=== PATIENT | male | born 2000 | race Caucasian/White ===

== ENCOUNTER 2018-10-11 04:26 | Emergency (ER) | payer OTHER ==
[~2018-10-11] VITALS: Ht 180.3 cm; Wt 158.8 kg
[2018-10-11 04:31] VITALS: BP_SYST 140
--- NOTE | 2018-10-11 04:31 | NUR ---
Patient to ER bed 3 to gown for evaluation. Side rails up.
--- NOTE | 2018-10-11 04:40 | NUR ---
Pt C/O Lt testical pain and nausea x 1 hour. Pt states he was driving and started to experience sudden onset testicular pain. Denies any deformities to the area, recent trauma, or any STD. Vital signs are stable will continue to monitor.
--- NOTE | 2018-10-11 04:41 | NUR ---
ER Dr. Shirley at bedside examining patient.
[2018-10-11] MEDS ORDERED: IBUPROFEN 800 MG TABLET PO ONE (04:45)
--- NOTE | 2018-10-11 05:00 | NUR ---
Dr. Shirley and Juan C RN at bedside for testicular exam. Pt tolerated examination well. Will continue to monitor.
--- NOTE | 2018-10-11 06:11 | NUR ---
Pt returned from ultrasound in stable condition. States pain has improved with medication. Mother is at bedside, will continue to monitor
--- NOTE | 2018-10-11 06:27 | NUR ---
Dr. Shirley at bedside discussing results and discharge instructions with pt
[2018-10-11 06:45] VITALS: BP_SYST 140
--- NOTE | 2018-10-11 06:45 | NUR ---
Patient given written and verbal discharge instructions and verbalizes understanding. ER MD discussed with patient the results and treatment provided. Patient in stable condition. ID arm band removed. Patient educated on pain management and to follow up with PMD. Pain Scale 0. Opportunity for questions provided and answered. Medication side effect fact sheet provided.
== END 2018-10-11 06:45 | disposition home or self-care (01) ==
LOC: SED 04:26
DX: N50.3 Cyst of epididymis (principal); N50.89 Other specified disorders of the male genital organs
CPT/HCPCS: 76870-TC; 99284

== ENCOUNTER 2018-10-27 01:14 | Emergency (ER) | payer OTHER ==
[~2018-10-27] VITALS: Ht 180.3 cm; Wt 142.9 kg
[2018-10-27 01:20] VITALS: BP_SYST 134
--- NOTE | 2018-10-27 01:35 | NUR ---
Patient to ER bed GORMAN to gown for evaluation. Side rails up. Report given to GISSEL REEDER.
--- NOTE | 2018-10-27 01:40 | NUR ---
Pt C/O testicular pain since April. Has been seen at [facility] and other local ED's for the same complaint. US was done on last visit and was discharged with Motrin. Pt has seen a specialists and per pt MD says "it is no cause for concern". Pain is intermittent and is relieved with Motrin and position of comfort. Pt states he did not take Motrin prior to arrival. Denies any other symptoms at this time.
--- NOTE | 2018-10-27 01:45 | NUR ---
ER Dr. Montelongo at bedside examining patient.
--- NOTE | 2018-10-27 02:15 | NUR ---
Patient given written and verbal discharge instructions and verbalizes understanding. ER MD discussed with patient the results and treatment provided. Patient in stable condition. ID arm band removed. Rx of Ciprofloxacin and Naprosyn given. Patient educated on pain management and to follow up with PMD. Pain Scale 0/10. Opportunity for questions provided and answered. Medication side effect fact sheet provided. Addendum: 10/27/18 at [email or web address] Montelongo gave discharge orders to patient
[2018-10-27 02:25] VITALS: BP_SYST 134
== END 2018-10-27 02:25 | disposition home or self-care (01) ==
LOC: SED 01:14
DX: N45.1 Epididymitis (principal)
CPT/HCPCS: 99283

== ENCOUNTER 2019-02-20 10:34 | Emergency (ER) | payer OTHER ==
[~2019-02-20] VITALS: Ht 180.3 cm; Wt 154.2 kg
[2019-02-20 10:34] VITALS: BP_SYST 129
[2019-02-20 14:25] LABS: BILIRUBIN,URINE NEGATIVE (NEGATIVE); BLOOD, URINE NEGATIVE (NEGATIVE); CLARITY/URINE CLEAR (CLEAR); COLOR,URINE YELLOW (YELLOW); GLUCOSE,URINE NEGATIVE (NEGATIVE); KETONES,URINE NEGATIVE (NEGATIVE); LEUKOCYTE ESTERASE ,URINE NEGATIVE (NEGATIVE); NITRITE, URINE NEGATIVE (NEGATIVE); PH,URINE 5.5 (5.0-8.0); PROTEIN URINE NEGATIVE (NEGATIVE); UROBILINOGEN,URINE 0.2 (0.2-1.0)
[2019-02-20 14:32] VITALS: BP_SYST 133
== END 2019-02-20 14:15 | disposition home or self-care (01) ==
LOC: SED 10:34
DX: L72.0 Epidermal cyst (principal)
CPT/HCPCS: 76870-TC; 81003; 99284

== ENCOUNTER 2019-03-10 11:31 | Emergency (ER) | payer OTHER ==
[~2019-03-10] VITALS: Ht 180.3 cm; Wt 158.8 kg
[2019-03-10 11:31] VITALS: BP_SYST 138
--- NOTE | 2019-03-10 11:31 | NUR ---
BROUGHT BACK TO BED #8 AND TRIAGED, REPORT GIVEN TO SHEREE
--- NOTE | 2019-03-10 11:40 | NUR ---
Patien is awake, alert, and oriented x4. Patient is complaining of left testicular pain x12 hours. Patient reports that he has a hitory of testicular torsion and that this feels like it.
[2019-03-10] MEDS ORDERED: KETOROLAC TROMETHAMINE 60 MG/2 ML VIAL IM ONE (12:00)
--- NOTE | 2019-03-10 12:00 | NUR ---
ER Dr. Zeng at bedside examining patient.
--- NOTE | 2019-03-10 12:28 | NUR ---
TAKEN TO RADIOLOGY VIA WHEELCHAIR FOR TESTING
[2019-03-10] MEDS ORDERED: IBUPROFEN 600 MG TABLET PO ONE (12:30)
[2019-03-10 13:40] VITALS: BP_SYST 130
--- NOTE | 2019-03-10 13:40 | NUR ---
Patient given written and verbal discharge instructions and verbalizes understanding. ER MD discussed with patient the results and treatment provided. Patient in stable condition. ID arm band removed. Rx of tramadol given. Patient educated on pain management and to follow up with PMD. Pain Scale 3/10, MD is aware. Opportunity for questions provided and answered. Medication side effect fact sheet provided.
== END 2019-03-10 13:40 | disposition home or self-care (01) ==
LOC: SED 11:31
DX: N44.2 Benign cyst of testis (principal)
CPT/HCPCS: 76870-TC; 99284; J1885

== ENCOUNTER 2019-03-18 17:25 | Emergency (ER) | payer OTHER ==
[~2019-03-18] VITALS: Ht 180.3 cm; Wt 158.8 kg
[2019-03-18 17:42] VITALS: BP_SYST 157
[2019-03-18] MEDS ORDERED: KETOROLAC TROMETHAMINE 60 MG/2 ML VIAL IM ONE (18:00)
[2019-03-18 18:50] VITALS: BP_SYST 157
== END 2019-03-18 18:52 | disposition home or self-care (01) ==
LOC: SED 17:25
DX: N50.811 Right testicular pain (principal); G89.29 Other chronic pain; J45.909 Unspecified asthma, uncomplicated
CPT/HCPCS: 81002; 99283; J1885

== ENCOUNTER 2023-10-27 20:31 | Emergency (ER) | payer OTHER ==
[~2023-10-27] VITALS: Ht 177.8 cm; Wt 149.7 kg
[2023-10-27 21:26] VITALS: BP_SYST 136; PULSE 106; RESP 20; TEMP 98.5; O2SAT 99
[2023-10-28 00:02] VITALS: TEMP 98.6
[2023-10-28 01:01] LABS: BASOPHILS % (AUTO) 0.5 % (0.0-2.0); EOSINOPHILS # (AUTO) 0.3 K/uL (0.0-0.4); EOSINOPHILS % (AUTO) 4.1 % (0.0-4.0); HEMATOCRIT 41.9 % (36-54); HEMOGLOBIN 14.4 g/dL (14.0-18.0); LYMPHOCYTES % (AUTO) 38.2 % (20.5-51.5); MEAN CORPUSCULAR HEMOGLOBIN 29 pg (27-31); MEAN CORPUSCULAR HGB CONC 34 % (32-36); MEAN CORPUSCULAR VOLUME 84 fL (79.0-98.0); MONOCYTES # (AUTO) 0.8 K/uL (0.0-1.0); MONOCYTES % (AUTO) 10.1 % (1.7-9.3); NEUTROPHILS # (AUTO) 3.7 K/uL (1.8-7.7); NEUTROPHILS % (AUTO) 47.1 % (40.0-70.0); PLATELET COUNT (AUTO) 265 K/uL (130-430); RED BLOOD CELL COUNT(AUTO) 5.01 MIL/uL (4.2-6.2); RED CELL DISTRIBUTION WIDTH 14.2 % (9.0-15.0); WHITE BLOOD COUNT (AUTO) 7.8 K/uL (4.8-10.8)
[2023-10-28] MEDS: FAMOTIDINE 20 MG TABLET PO ONE (01:27)
[2023-10-28] MEDS: FAMOTIDINE PF 20 MG/2 ML VIAL IVP ONE (01:34)
[2023-10-28 01:38] LABS: ANION GAP 7 (5-15); CALCIUM 8.4 mg/dL (8.4-11.0); CARBON DIOXIDE 28 mmol/L (23-29); CHLORIDE 105 mmol/L (98-107); GFR AFRICAN AMERICAN 151 mL/min (>90); GFR NON AFRICAN-AMERICAN 125 mL/min (>90); GLUCOSE 137 mg/dL (74-106); POTASSIUM 3.8 mmol/L (3.5-5.1); SODIUM SERUM 140 mmol/L (136-145); UREA NITROGEN, BLOOD 14 mg/dL (8-21)
[2023-10-28 03:00] VITALS: BP_SYST 125; PULSE 88; RESP 18; O2SAT 98
== END 2023-10-28 04:20 | disposition left against medical advice (07) ==
LOC: SED 20:31
DX: R07.89 Other chest pain (principal); M54.2 Cervicalgia; H92.01 Otalgia, right ear; J45.909 Unspecified asthma, uncomplicated; I10 Essential (primary) hypertension; E03.9 Hypothyroidism, unspecified
CPT/HCPCS: 36415; 80048; 83880; 84484; 85025; 93005; 99284